=== PATIENT | female | born 1975 | race Caucasian/White ===

== ENCOUNTER 2017-05-23 16:30 | Emergency (ER) | payer OTHER ==
[~2017-05-23] VITALS: Ht 162.6 cm; Wt 92.0 kg
[2017-05-23 16:42] VITALS: Ht 162.6 cm; Wt 92.0 kg
[2017-05-23] MEDS ORDERED: ONDA4TAB14 PO (17:44)
[2017-05-23] MEDS ORDERED: IBUP-1542 PO (17:44)
[2017-05-23] MEDS ORDERED: AZIT250T94 PO (17:44)
[2017-05-23] MEDS ORDERED: PHEN177S43 MT (17:44)
--- NOTE | 2017-05-23 17:54 | ERD ---
ER Documentation Chief Complaint Chief Complaint FEVER WITH SORE THROAT, BODY ACHES, NAUSEA SINCE LAST NIGHT HPI Patient is a 43-year-old female presenting to the emergency department with complaints of fever, sore throat, body aches and nausea since last night. Patient's symptoms are worsening. Symptoms are moderate in severity currently. The patient took Tylenol at home with mild relief of symptoms. 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 She denies other symptoms at this time. ROS All systems reviewed and are negative except as per history of present illness. Medications Home Meds Active Scripts Ondansetron (Ondansetron Odt) 4 Mg Tab.rapdis, 4 MG PO Q6H Y for NAUSEA AND/OR VOMITING, #10 TAB Prov:SKIP JEFFERSON PA-C 05/23/17 Ibuprofen* (Motrin*) 600 Mg Tab, 600 MG PO Q6, #30 TAB Prov:SKIP JEFFERSON PA-C 05/23/17 Phenol* (Chloraseptic* Hanson) 177 Ml Hanson.pump, 2 SPRAY MT Q2H Y for SORE THROAT, #1 BOTTLE Prov:SKIP JEFFERSON PA-C 05/23/17 Azithromycin* (Zithromax*) 250 Mg Tablet, 250 MG PO .ZPACK DIRECTED, #6 TAB TAKE 500 MG (2 TABS) THE FIRST DAY THEN 250 MG (1 TAB) DAYS 2-5 Prov:SKIP JEFFERSON PA-C 05/23/17 PMhx/Soc Medical and Surgical Hx: pt denies Medical Hx, pt denies Surgical Hx History of Surgery: No Anesthesia Reaction: No Hx Neurological Disorder: No Hx Respiratory Disorders: No Hx Cardiac Disorders: No Hx Psychiatric Problems: No Hx Miscellaneous Medical Probl: No Hx Alcohol Use: No Hx Substance Use: No Hx Tobacco Use: No Smoking Status: Never smoker Physical Exam Vitals Vital Signs Date Time Temp Pulse Resp B/P Pulse Ox O2 Delivery O2 Flow Rate FiO2 05/23/17 16:42 100.1 68 18 131/76 98 Physical Exam Const: Nontoxic, well-appearing female in no acute distress. Head: Atraumatic Eyes: Normal Conjunctiva ENT: Normal External Ears, Nose and Mouth. Bilateral tonsillar hypertrophy, erythema, and exudate present. The airway is clear. No uvular deviation. Neck: Full range of motion..~ No meningismus. There is anterior cervical lymphadenopathy bilaterally. Resp: Clear to auscultation bilaterally Cardio: Regular rate and rhythm, no murmurs Skin: No petechiae or rashesess Ext: No cyanosis, or edema Neur: Awake and alert Psych: Normal Mood and Affect Procedures/MDM 42-year-old female presents to the emergency department with complaints of sore throat. The patient has 3 out of 4 centor criteria including lack of cough, anterior cervical lymphadenopathy, and tonsillar exudate. I believe it is reasonable to treat the patient empirically with antibiotics for presumed strep. Patient is stable for discharge with prescriptions. No evidence to suggest life-threatening illness at time of discharge. Pt/family in agreement with discharge plan/diagnosis. Pt/family advised to return immediately with any new or worsening symptoms. Follow-up with primary care physician within the next 1-2 days. Disclaimer: Inadvertent spelling and grammatical errors are likely due to EHR/ dictation software use and do not reflect on the overall quality of patient care. Also, please note that the electronic time recorded on this note does not necessarily reflect the actual time of the patient encounter. Departure Diagnosis: Primary Impression: Pharyngitis Pharyngitis/tonsillitis etiology: unspecified etiology Qualified Code: J02.9 - Pharyngitis, unspecified etiology Condition: Fair Patient Instructions: Pharyngitis, Strep (Presumed) Referrals: [facility] YOU HAVE RECEIVED A MEDICAL SCREENING EXAM AND THE RESULTS INDICATE THAT YOU DO NOT HAVE A CONDITION THAT REQUIRES URGENT TREATMENT IN THE EMERGENCY DEPARTMENT. FURTHER EVALUATION AND TREATMENT OF YOUR CONDITION CAN WAIT UNTIL YOU ARE SEEN IN YOUR DOCTORS OFFICE WITHIN THE NEXT 1-2 DAYS. IT IS YOUR RESPONSIBILITY TO MAKE AN APPOINTMENT FOR [facility]- CARE. IF YOU HAVE A PRIMARY DOCTOR --you should call your primary doctor and schedule an appointment IF YOU DO NOT HAVE A PRIMARY DOCTOR YOU CAN CALL OUR PHYSICIAN REFERRAL HOTLINE AT IF YOU CAN NOT AFFORD TO SEE A PHYSICIAN YOU CAN CHOSE FROM THE FOLLOWING [facility] [id number] [place]. [facility] [address] [facility]. [facility] [address] [facility]. [facility] [address] [facility]. [facility] [address] [facility]. [facility]. [address] Additional Instructions: Call your primary care doctor TOMORROW for an appointment during the next 1-2 days.See the doctor sooner or return here if your condition worsens before your appointment time. SKIP JEFFERSON PA-C May 23, 2017 17:54
[2017-05-23 18:04] VITALS: TEMP 99.7
== END 2017-05-23 17:59 | disposition home or self-care (01) ==
LOC: FTE 16:30
DX: J02.9 Acute pharyngitis, unspecified (principal)
CPT/HCPCS: 99284

== ENCOUNTER 2018-06-10 22:17 | Emergency (ER) | END 2018-06-11 00:49 | disposition home or self-care (01) ==